=== PATIENT | male | born 1945 | race Caucasian/White ===

== ENCOUNTER 2019-09-02 20:05 | Inpatient (IN) | payer MEDICARE, OTHER ==
[~2019-09-02] VITALS: Ht 182.9 cm; Wt 75.7 kg
--- NOTE | 2019-09-02 20:05 | NUR ---
PLACIDO FROM [facility] AILEEN GÓMEZ FADIBRISSA C/O FEVER X2 DAYS. TYLENOL GIVEN @1400 PER EMT REPORT. PT AAOX4 NO ACUTE DISTRESS NOTED, RESP EVEN AND UNLABORED. PLACE P TON CARDIAC MONITORING, CONTINUOUS POX. PENDING ER MD MCGILL.
--- NOTE | 2019-09-02 20:11 | NUR ---
ER MD AT BEDSIDE TO EVAL PT WITH ORDERS RECEIVED. WILL CARRY OUT ORDERS.
--- NOTE | 2019-09-02 20:25 | NUR ---
URINE SAMPLE COLLECTED AND SENT TO LAB.
--- NOTE | 2019-09-02 20:30 | NUR ---
STARTED SL 18G LAC, BLOOD DRAWN AND SENT TO LAB.
[2019-09-02 20:43] LABS: BASOPHILS # (AUTO) 0.1 /CMM (0.0-0.2); BASOPHILS % (AUTO) 0.4 % (0.0-2.0); EOSINOPHILS % (AUTO) 0.5 % (0.0-6.0); HEMATOCRIT 46 % (39-51); LYMPHOCYTES # (AUTO) 1.8 /CMM (0.8-4.8); LYMPHOCYTES % (AUTO) 12.2 % (20.0-44.0); MEAN CORPUSCULAR HGB CONC 33 g/dl (31.0-36.0); MEAN CORPUSCULAR VOLUME 85 fL (80-96); MONOCYTES # (AUTO) 1.2 /CMM (0.1-1.30); MONOCYTES % (AUTO) 8.5 % (2.0-12.0); NEUTROPHILS # (AUTO) 11.4 /CMM (1.8-8.9); NEUTROPHILS % (AUTO) 78.4 % (43.0-81.0); PLATELET COUNT (AUTO) 185 /CMM (150-450); RED BLOOD CELL COUNT(AUTO) 5.36 MIL/uL (4.5-6.0); WHITE BLOOD COUNT (AUTO) 14.5 K/uL (4.3-11.0)
[2019-09-02 20:46] LABS: APPEARANCE,URINE Clear (CLEAR); BILIRUBIN,URINE Negative (NEGATIVE); BLOOD, URINE Moderate Ery/uL (NEGATIVE); COLOR,URINE Yellow (YELLOW); KETONES,URINE Negative (NEGATIVE); LEUKOCYTE ESTERASE ,URINE Moderate (NEGATIVE); NITRITE, URINE Positive (NEGATIVE); PROTEIN,URINE Negative (NEGATIVE); UGLUCOSE Negative (NEGATIVE); UROBILINOGEN,URINE 0.2 EU/dL (0.2)
[2019-09-02 20:51] LABS: CARBON DIOXIDE 26 mmol/L (21-32); CHLORIDE 103 mmol/L (98-107); CREATININE 2.2 mg/dL (0.6-1.3); GLUCOSE 110 mg/dL (74-106); POTASSIUM 3.9 mmol/L (3.5-5.1); SODIUM SERUM 139 mmol/L (136-145); UREA NITROGEN, BLOOD 22 mg/dL (7-18)
[2019-09-02 20:56] LABS: BACTERIA,URINE Many /HPF (None Seen); SQUAMOUS EPITHELIAL CELL,UR Few /HPF (None Seen); WBC,URINE TOO NUMEROUS TO COUN /HPF (0-3)
--- NOTE | 2019-09-02 20:59 | NUR ---
COVID SWAB DONE AND SENT TO LAB
[2019-09-02 21:00] LABS: CREATINE KINASE, TOTAL 47 U/L (39-308)
[2019-09-02 21:03] LABS: ALANINE AMINOTRANSFERASE 14 U/L (12-78); ALBUMIN 3.6 g/dL (3.4-5.0); ALKALINE PHOSPHATASE 129 U/L (46-116); ASPARTATE AMINOTRANSFERASE 9 U/L (15-37); BILIRUBIN,DIRECT 0.1 mg/dL (0.0-0.2); BILIRUBIN,TOTAL 0.5 mg/dL (0.2-1.0); TOTAL PROTEIN, SERUM 7.2 g/dL (6.4-8.2)
[2019-09-02 21:06] LABS: C-REACTIVE PROTEIN 6.3 mg/dL (0.0-0.9)
[2019-09-02] MEDS ORDERED: VANCOMYCIN 1 GM in IV D5W 250 ML IV ONE (21:30)
[2019-09-02] MEDS ORDERED: PIPERACILLIN /TAZOBACTAM 3.375 G in IV D5W 50 ML IV ONE (21:30)
[2019-09-02] MEDS ORDERED: PIPERACILLIN /TAZOBACTAM 3.375 G VIAL IV ONE (22:05)
[2019-09-02] MEDS ORDERED: VANCOMYCIN 1 GM VIAL ONE (22:05)
[2019-09-02] MEDS ORDERED: IV NS 0.9% 1,000 ML BAG IV ONE (22:30)
--- NOTE | 2019-09-02 22:37 | NUR ---
ROOM ASSIGNMENT 118-1 TELE
--- NOTE | 2019-09-02 22:55 | NUR ---
FACILITY PLANNER NOTES RECEIVED REPORT FROM ADELFO HURTADO RN
--- NOTE | 2019-09-02 22:55 | NUR ---
REPORT GIVEN TO MAK GUTIERREZ FOR ANJEL
--- NOTE | 2019-09-02 23:42 | NUR ---
PT TRANSPORTED TO UNIT ON [place] WITH EMT AND RN AT BEDSIDE W/ ACLS PROTOCOL. NAD NOTED DURING TRANSPORT. PT AMBULATED FROM GURNEY TO BED W/O ASSIST ON STEADY GAIT
--- NOTE | 2019-09-02 23:44 | NUR ---
AUXILIARY ENGINEER NOTES RECEIVED PT VIA AIDEE FROM ADELFO HURTADO RN. NAD, NO SOB. LUNGS CLEAR ON AUSCULTATION BILATERALLY. AOX4. S/P PERMANENT PACEMAKER ON UPPER LEFT CHEST NOTED, CONTROLLED AV PACING ON TELE MONITOR. CONTINENT OF URINE AND BOWEL. ON A REGULAR DIET WITHOUT ASSISTANCE. LAC IV ACCESS WITH 18G SL. ALL ADMISSION DOCUMENTS FILED. ALL ORDERS RECEIVED FROM Shalom MARQUEZ N.P, AND CARRIED OUT. BED LOCKED AND LOWEST POSITION. ALL SAFETY MEASURES IN PLACE. WILL CONT TO MONITOR.
[2019-09-03] VITALS: BP 143/73
[2019-09-03] MEDS ORDERED: ACETAMINOPHEN 325 MG TABLET PO PRN
[2019-09-03] MEDS ORDERED: ONDANSETRON HCL/PF 4 MG/2 ML VIAL IV PRN
[2019-09-03] MEDS ORDERED: IV NS 0.9% 1,000 ML IV PRN
[2019-09-03 04:00] VITALS: BP 96/50
[2019-09-03] MEDS ORDERED: PIPERACILLIN /TAZOBACTAM 3.375 G VIAL IV ONE (05:07)
[2019-09-03] MEDS ORDERED: PIPERACILLIN /TAZOBACTAM 3.375 G in IV D5W 50 ML IV SCH ×2 (06:00→12:00)
--- NOTE | 2019-09-03 06:15 | NUR ---
COOK PIE NOTES PT COMBATIVE AND UNCOOPERATIVE ABOUT CHANGING THE TELE LEADS. SWUNG AT ME WITH HIS RIGHT ARM. NO INJURY OR DAMAGE WAS DONE TO ME OR THE PATIENT. NAD, NO SOB NOTED. LEFT THE ROOM. WILL ENDORSE TO THE ONCOMING RN
[2019-09-03 07:00] LABS: BASOPHILS # (AUTO) 0.1 /CMM (0.0-0.2); BASOPHILS % (AUTO) 0.6 % (0.0-2.0); EOSINOPHILS % (AUTO) 0.7 % (0.0-6.0); HEMATOCRIT 42 % (39-51); HEMOGLOBIN 13.8 g/dL (13.5-17.5); LYMPHOCYTES # (AUTO) 2.4 /CMM (0.8-4.8); LYMPHOCYTES % (AUTO) 20.3 % (20.0-44.0); MEAN CORPUSCULAR HGB CONC 33 g/dl (31.0-36.0); MEAN CORPUSCULAR VOLUME 85 fL (80-96); MONOCYTES # (AUTO) 1.3 /CMM (0.1-1.30); NEUTROPHILS # (AUTO) 7.8 /CMM (1.8-8.9); NEUTROPHILS % (AUTO) 67.4 % (43.0-81.0); PLATELET COUNT (AUTO) 163 /CMM (150-450); RED BLOOD CELL COUNT(AUTO) 4.97 MIL/uL (4.5-6.0); WHITE BLOOD COUNT (AUTO) 11.6 K/uL (4.3-11.0)
[2019-09-03 07:10] LABS: CALCIUM, SERUM 8.5 mg/dL (8.5-10.1); CARBON DIOXIDE 28 mmol/L (21-32); CHLORIDE 105 mmol/L (98-107); CREATININE 2.1 mg/dL (0.6-1.3); GLUCOSE 90 mg/dL (74-106); POTASSIUM 4.2 mmol/L (3.5-5.1); SODIUM SERUM 140 mmol/L (136-145); UREA NITROGEN, BLOOD 23 mg/dL (7-18)
[2019-09-03 07:20] LABS: PROSTATE SPECIFIC ANTIGEN SCR 1.91 ng/mL (0.00-4.00)
--- NOTE | 2019-09-03 07:30 | NUR ---
RN OPENING NOTE: RECEIVED PATIENT IN BED THIS MORNING. PATIENT IS ALERT AND ORIENTED X3, RESPOND APPROPRIATELY. NO SIGNS OF RESPIRATORY DISTRESS NOTED, SATING WELL ON RA. PATIENT IS REFUSING TELE MONITORING, EXPLAINED IMPORTANCE OF IT, PATIENT CONTINUES TO REFUSE. NO SIGNS OF ACUTE DISTRESS NOTED. PATIENT IS CONTINENT OF B&B. IV LINE PULLED OUT, WILL INSERT NEW ONE. PM MARIELA. SAFETY MEASURES IMPLEMENTED, BED IN LOWEST POSITION, LOCKED, SIDE RAILS UP X2, CALL LIGHT WITHIN REACH. WILL CONTINUE TO MONITOR PATIENT FOR CHANGES.
[2019-09-03] MEDS ORDERED: TRAZ-182 PO (07:39)
[2019-09-03] MEDS ORDERED: METO25TA3 PO (07:39)
[2019-09-03] MEDS ORDERED: ASPI-1152 PO (07:39)
[2019-09-03] MEDS ORDERED: DILT180C93 PO (07:39)
[2019-09-03] MEDS ORDERED: TEMA15CA PO (07:39)
[2019-09-03] MEDS ORDERED: PANT20TA2 PO (07:39)
[2019-09-03] MEDS ORDERED: LACT20SO4 PO (07:39)
[2019-09-03] MEDS ORDERED: TAMS-12 PO (07:39)
[2019-09-03] MEDS ORDERED: SERT25TA PO (07:39)
[2019-09-03] MEDS ORDERED: ATOR40TA PO (07:39)
[2019-09-03 08:00] VITALS: BP 104/65
[2019-09-03] MEDS ORDERED: PIPERACILLIN /TAZOBACTAM 3.375 G in IV D5W 100 ML IV SCH (10:00)
[2019-09-03] MEDS: ENOXAPARIN SODIUM 40 MG/0.4 ML DISP.SYRIN SQ SCH (11:08)
[2019-09-03 12:00] VITALS: BP 115/68
--- NOTE | 2019-09-03 12:34 | NUR ---
GAVE REPORT TO MAK WHITING
[2019-09-03] MEDS ORDERED: TEMAZEPAM 15 MG CAPSULE PO PRN ×2 (13:00)
--- NOTE | 2019-09-03 13:00 | NUR ---
RECEIVED PT SITTING IN BED AND GOES TO THE TOILET NEEDED.AMBULATES ALONG THE HALLWAY WEARING MASK.PT IS COMPLIANT WITH MEDS.DENIES PAIN OR DISTRESS AND IS SO EAGER TO GO HOME.
[2019-09-03] MEDS ORDERED: LACTULOSE 10 G/15 ML UDC (PYXIS) PO PRN (13:30)
--- NOTE | 2019-09-03 15:44 | NUR ---
RN MS NOTES RECEIVED PT FROM JOHANNE CORADO, PT IS ALERT AND ORIENTED, AMBULATORY, ASSISTED TO BED, MADE COMFORTABLE, ROOM SET UP ORIENTATION PROVIDED TO PT, VERBALIZED UNDERSTANDING, DENIES PAIN OR ANY DISCOMFORT, RESPIRATIONS NORMAL, CALL LIGHT PLACED WITHIN REACH, NEEDS ATTENDED.
[2019-09-03 16:00] VITALS: BP_SYST 108; BP_SYST 134; BP_DIAS 52; BP_DIAS 80
--- NOTE | 2019-09-03 16:00 | NUR ---
REPORT GIVEN TO MAK DOMINIQUE OF MED SURG 2. TRANSFERRED PT TO MS 2 ROOM 208 WITH STABLE V/S.
[2019-09-03 16:20] LABS: CHOLESTEROL 90 mg/dL (<200); HDL CHOLESTEROL 35 mg/dL (40-60); LDL 53 mg/dL (0-99); TRIGLYCERIDES 46 mg/dL (30-150)
[2019-09-03 16:22] LABS: PHOSPHORUS 3.6 mg/dL (2.5-4.9)
[2019-09-03] MEDS ORDERED: TAMSULOSIN 0.4 MG CAP.SR.24H PO SCH ×2 (17:00→22:00)
--- NOTE | 2019-09-03 18:11 | NUR ---
RN MS NOTES PT IN BED, EATING DINNER, NO COMPLAINT OF PAIN, NOT IN DISTRESS, TOLERATES CURRENT DIET, CALL LIGHT WITHIN REACH, PT AMBULATES ALONG THE HALLWAY WITH STEADY GAIT, NEEDS ATTENDED.
[2019-09-03] MEDS: PIPERACILLIN /TAZOBACTAM 3.375 G in IV D5W 50 ML IV SCH (18:36)
--- NOTE | 2019-09-03 20:00 | NUR ---
MS RN NOTE: PATIENT RESTING IN BED, NO ACUTE DISTRESS NOTED. BREATHING EVEN AND UNLABORED, NO SOB NOTED. IV TO LFA IN PLACE. BED LOCKED AND IN LOWEST POSITION, CALL LIGHT IN REACH. WILL CONTINUE TO MONITOR.
[2019-09-03 20:45] VITALS: BP 136/69
[2019-09-03] MEDS ORDERED: TRAZODONE 50 MG TABLET PO SCH (22:00)
[2019-09-03] MEDS ORDERED: ATORVASTATIN 40 MG TABLET PO SCH (22:00)
[2019-09-04] MEDS: PIPERACILLIN /TAZOBACTAM 3.375 G in IV D5W 50 ML IV SCH ×3 (00:36→12:39)
--- NOTE | 2019-09-04 06:15 | NUR ---
MS RN NOTE: PATIENT RESTING IN BED, NO ACUTE DISTRESS NOTED. BREATHING EVEN AND UNLABORED, NO SOB NOTED. IV TO LFA IN PLACE. BED LOCKED AND IN LOWEST POSITION, CALL LIGHT IN REACH. WILL ENDORSE TO DAY NURSE TO CONTINUE WITH PLAN OF CARE.
[2019-09-04 06:26] LABS: BASOPHILS # (AUTO) 0.1 /CMM (0.0-0.2); BASOPHILS % (AUTO) 0.6 % (0.0-2.0); HEMATOCRIT 44 % (39-51); HEMOGLOBIN 14.3 g/dL (13.5-17.5); LYMPHOCYTES % (AUTO) 24.1 % (20.0-44.0); MEAN CORPUSCULAR HGB CONC 33 g/dl (31.0-36.0); MEAN CORPUSCULAR VOLUME 85 fL (80-96); MONOCYTES # (AUTO) 0.8 /CMM (0.1-1.30); NEUTROPHILS # (AUTO) 5.3 /CMM (1.8-8.9); NEUTROPHILS % (AUTO) 63.3 % (43.0-81.0); PLATELET COUNT (AUTO) 148 /CMM (150-450); RED BLOOD CELL COUNT(AUTO) 5.13 MIL/uL (4.5-6.0); WHITE BLOOD COUNT (AUTO) 8.3 K/uL (4.3-11.0)
--- NOTE | 2019-09-04 07:20 | NUR ---
RN NOTES RECEIVED PATIENT RESTING IN BED, NO ACUTE DISTRESS NOTED AT THIS TIME. IV TO LFA IN PLACE, PATENT AND INTACT, SAFETY MEASURES IN PLACE, BED LOCKED AND IN LOWEST POSITION, CALL LIGHT IN REACH. WILL CONTINUE TO MONITOR.
[2019-09-04 08:00] VITALS: BP 122/50
[2019-09-04] MEDS: ENOXAPARIN SODIUM 40 MG/0.4 ML DISP.SYRIN SQ SCH (08:41)
[2019-09-04 09:00] VITALS: BP 122/50
[2019-09-04] MEDS ORDERED: ASPIRIN EC 81 MG TABLET.DR PO SCH (09:00)
[2019-09-04] MEDS ORDERED: METOPROLOL SUCCINATE 25 MG TAB.SR.24H PO SCH (09:00)
[2019-09-04] MEDS ORDERED: DILTIAZEM HCL CD 180 MG PO SCH (09:00)
[2019-09-04] MEDS ORDERED: SERTRALINE HCL 25 MG TABLET PO SCH (09:00)
[2019-09-04] MEDS ORDERED: LEVO500T75 PO (12:17)
[2019-09-04 13:36] LABS: ALANINE AMINOTRANSFERASE 14 U/L (12-78); ALBUMIN 3.1 g/dL (3.4-5.0); ALKALINE PHOSPHATASE 93 U/L (46-116); ASPARTATE AMINOTRANSFERASE 16 U/L (15-37); BILIRUBIN,TOTAL 0.6 mg/dL (0.2-1.0); CALCIUM, SERUM 8.7 mg/dL (8.5-10.1); CARBON DIOXIDE 22 mmol/L (21-32); CHLORIDE 106 mmol/L (98-107); CREATININE 2.1 mg/dL (0.6-1.3); GLUCOSE 82 mg/dL (74-106); PHOSPHORUS 3.6 mg/dL (2.5-4.9); POTASSIUM 4.2 mmol/L (3.5-5.1); SODIUM SERUM 141 mmol/L (136-145); TOTAL PROTEIN, SERUM 6.4 g/dL (6.4-8.2); UREA NITROGEN, BLOOD 28 mg/dL (7-18)
--- NOTE | 2019-09-04 15:28 | NUR ---
RN DISCHARGED NOTES PATIENT DISCHARGED IN STABLE CONDITION. A/O X4. ABLE TO MAKE NEEDS KNOWN. V/S TAKEN, STABLE AND RECORDED. PATIENT'S IV ACCESS REMOVED AND APPLIED PRESSURE DRESSINGS. SKIN IS INTACT. NAME ARM BAND REMOVED. ALL BELONGINGS CHECKED AND SIGNED. PRESCRIPTION FOR LEVAQUIN GIVEN TO PATIENT. HEALTH TEACHINGS/DISCHARGED INSTRUCTIONS GIVEN AND VERBALIZED UNDERSTANDING. PATIENT LEFT UNIT VIA GURNEY ACCOMPANIED BY 2 AMBULANCE STAFF. NO SIGNS OF DISTRESS. CHARGE NURSE AWARE OF DISCHARGED.
== END 2019-09-04 15:00 | DRG 871 ==
LOC: ER 20:08 → TELE1 23:33 → MEDSG2 09-03 15:40
PROVIDERS: ADMIT Legal Medicine; ATTEND Legal Medicine
DX: A41.9 Sepsis, unspecified organism (principal); G93.41 Metabolic encephalopathy; I13.0 Hypertensive heart and chronic kidney disease with heart failure and stage 1 through stage 4 chronic kidney disease, or unspecified chronic kidney disease; N17.9 Acute kidney failure, unspecified; N39.0 Urinary tract infection, site not specified; E78.5 Hyperlipidemia, unspecified; N18.9 Chronic kidney disease, unspecified; I50.9 Heart failure, unspecified; J44.9 Chronic obstructive pulmonary disease, unspecified; N40.0 Benign prostatic hyperplasia without lower urinary tract symptoms; I25.10 Atherosclerotic heart disease of native coronary artery without angina pectoris; M19.90 Unspecified osteoarthritis, unspecified site; M54.5 Low back pain
CPT/HCPCS: 36415; 71045-TC; 76770-TC; 80048-TC; 80053-TC; 80061-TC; 80076-TC; 81000-TC; 82550-TC; 83605-TC; 83615-TC; 83735-TC; 84100-TC; 84153-TC; 84154-TC; 84484-TC; 85025-TC; 85730-TC; 86140-TC; 87040-TC; 87081-TC; 87086-TC; 87186-TC; 93307-TC; G0378; J1650; J2543; J3370; J7030; J7060